=== PATIENT | female | born 1990 | race Caucasian/White ===

== ENCOUNTER 2017-05-06 18:38 | Emergency (ER) | payer SELFPAY ==
[2017-05-06] MEDS: MECLIZINE 12.5 MG TAB PO (20:28)
[2017-05-06] MEDS: ONDANSETRON (ODT) 4 MG TAB ODT (20:28)
== END 2017-05-06 20:31 | disposition home or self-care (01) ==
LOC: FTE 18:38
DX: S09.90XA Unspecified injury of head, initial encounter (principal); S16.1XXA Strain of muscle, fascia and tendon at neck level, initial encounter; S49.91XA Unspecified injury of right shoulder and upper arm, initial encounter; S49.92XA Unspecified injury of left shoulder and upper arm, initial encounter; V89.2XXA Person injured in unspecified motor-vehicle accident, traffic, initial encounter
CPT/HCPCS: 99284